=== PATIENT | female | born 1980 | race Caucasian/White ===

== ENCOUNTER → 2016-04-06 | Outpatient (CLI) | payer MEDICAID ==
[~2016-04-06] MED LIST: ZESTRIL 5MG5 MG PO
== END ==
LOC: COL.VAS 12:21
DX: R06.02 Shortness of breath (principal)

== ENCOUNTER → 2017-12-26 | Outpatient (REF) | LOC: ZLAB.WCH 18:36 | DX: Z01.89 Encounter for other specified special examinations (principal) ==

== ENCOUNTER 2018-05-24 09:00 | Outpatient (RCR) | payer MEDICAID | END 2018-06-27 | disposition home or self-care (01) | LOC: MKS.ESL.PT | DX: M76.62 Achilles tendinitis, left leg (principal); M76.61 Achilles tendinitis, right leg ==

== ENCOUNTER 2018-10-06 | Emergency (ER) | payer MEDICAID ==
[~2018-10-06] VITALS: Ht 162.6 cm; Wt 90.9 kg
[2018-10-06 00:08] VITALS: TEMP 98.3
[2018-10-06] MEDS ORDERED: ZESTRIL 10MG10 MG PO (00:15)
[2018-10-06] MEDS ORDERED: REQUIP 0.5MG0.5 MG PO (00:15)
[2018-10-06] MEDS ORDERED: DIAMOX SEQUELS500 M1 PO (00:15)
[2018-10-06] MEDS ORDERED: ZANTAC 150MG T150 MG PO (00:16)
[2018-10-06] MEDS ORDERED: MICROGESTIN 1.51 TAB PO (00:16)
[2018-10-06] MEDS ORDERED: COMBIRESP IH (00:16)
[2018-10-06] MEDS ORDERED: PROZAC 20MG20 MG PO (00:16)
[2018-10-06] MEDS ORDERED: 00186-0372-20 IH (00:17)
[2018-10-06 02:21] VITALS: BP 124/71; PULSE 61
== END 2018-10-06 02:21 | disposition home or self-care (01) ==
LOC: COL.ER
DX: M79.89 Other specified soft tissue disorders (principal); R79.89 Other specified abnormal findings of blood chemistry
CPT/HCPCS: J1650

== ENCOUNTER → 2018-10-07 | Outpatient (CLI) | payer MEDICAID ==
[~2018-10-07] MED LIST changes: +00186-0372-20 IH; +COMBIRESP IH; +DIAMOX SEQUELS500 M1 PO; +MICROGESTIN 1.51 TAB PO; +PROZAC 20MG20 MG PO; +REQUIP 0.5MG0.5 MG PO; +ZANTAC 150MG T150 MG PO; +ZESTRIL 10MG10 MG PO
== END ==
LOC: COL.RAD 12:32
DX: Z13.6 Encounter for screening for cardiovascular disorders (principal); M79.89 Other specified soft tissue disorders

== ENCOUNTER → 2018-10-17 | Outpatient (CLI) | payer MEDICAID | LOC: COL.RAD 10:10 | DX: M75.101 Unspecified rotator cuff tear or rupture of right shoulder, not specified as traumatic (principal) ==

== ENCOUNTER 2019-09-07 11:22 | Emergency (ER) | payer MEDICAID ==
[~2019-09-07] VITALS: Ht 170.2 cm; Wt 95.5 kg
[2019-09-07 11:30] VITALS: TEMP 97.9
[2019-09-07 12:13] LABS: BASO # 0.1 (0.0-0.2); BASO % 0.4 % (0.0-2.0); EOS # 0.2 (0.0-0.7); EOS % 1.8 % (0-4.0); GRAN # 7.5 (1.4-6.5); GRAN % 65.2 % (42.2-75.2); HEMATOCRIT 45.1 % (37.0-47.0); HEMOGLOBIN 14.9 g/dl (12.5-16.0); LYMPH % 25.8 % (20.0-51.0); MEAN CELL VOLUME 84 fl (80.0-100.0); MEAN CORPUSCULAR HEMOGLOBIN 28 pg (27.0-31.0); MEAN CORPUSCULAR HGB CONC 33 g/dl (33.0-37.0); MEAN PLATELET VOLUME 9.9 fl (7.4-10.4); MONO # 0.7 (0.1-0.6); MONO % 6.5 % (1.7-9.3); PLATELET COUNT 299 K/mm3 (130-400); RED BLOOD COUNT 5.36 M/mm3 (4.10-5.30); REDCELL DISTRIBUTION WIDTH-CV 13.8 % (11.5-14.5)
[2019-09-07 12:14] LABS: COLLECTION METHOD CLEAN CATCH
[2019-09-07 12:17] LABS: ALBUMIN 4.2 gm/dL (3.5-5.0); BILIRUBIN,TOTAL 0.5 mg/dL (0.0-1.0); C-REACTIVE PROTEIN 3.4 mg/dL (0.0-0.9); CALCIUM 9.3 mg/dL (8.4-10.2); CREATININE, serum 0.82 (0.52-1.25); POTASSIUM 3.7 mmol/L (3.4-5.0); TOTAL PROTEIN 7.8 gm/dL (6.4-8.2)
[2019-09-07 12:21] LABS: MUCOUS Present /lpf; PH 6 (5-8); URINE APPEARANCE Hazy; URINE BACTERIA Occasional /hpf; URINE BILIRUBIN Negative (NEGATIVE); URINE BLOOD Negative (NEGATIVE); URINE COLOR Yellow; URINE GLUCOSE Negative (NEGATIVE); URINE KETONE Negative (NEGATIVE); URINE LEUKOCYTE ESTERASE 2+ (NEGATIVE); URINE NITRATE Negative (NEGATIVE); URINE PROTEIN(semi-quant) Negative (NEGATIVE); URINE RBC None Seen /hpf
[2019-09-07] MEDS ORDERED: NORCO 325 MG-51 TAB PO (13:25)
[2019-09-07 13:36] VITALS: BP 121/82; PULSE 83
== END 2019-09-07 13:38 | disposition home or self-care (01) ==
LOC: COL.ER 11:22
PROVIDERS: Family Medicine
DX: K52.9 Noninfective gastroenteritis and colitis, unspecified (principal); K21.9 Gastro-esophageal reflux disease without esophagitis; Z79.899 Other long term (current) drug therapy; Z90.49 Acquired absence of other specified parts of digestive tract
CPT/HCPCS: J2270; J2405; J7120; Q9967

== ENCOUNTER 2019-09-13 04:27 | Emergency (ER) | payer MEDICAID ==
[~2019-09-13] VITALS: Ht 165.1 cm; Wt 100.0 kg
[~2019-09-13 04:27] MED LIST changes: +NORCO 325 MG-51 TAB PO
[2019-09-13 04:32] VITALS: TEMP 97.9
[2019-09-13 05:26] LABS: BASO # 0.1 (0.0-0.2); BASO % 0.5 % (0.0-2.0); EOS # 0.2 (0.0-0.7); EOS % 1.6 % (0-4.0); GRAN # 9.5 (1.4-6.5); HEMATOCRIT 46.2 % (37.0-47.0); HEMOGLOBIN 15.1 g/dl (12.5-16.0); LYMPH # 3.7 (1.2-3.4); LYMPH % 25.5 % (20.0-51.0); MEAN CELL VOLUME 83 fl (80.0-100.0); MEAN CORPUSCULAR HEMOGLOBIN 27 pg (27.0-31.0); MEAN CORPUSCULAR HGB CONC 33 g/dl (33.0-37.0); MEAN PLATELET VOLUME 10.2 fl (7.4-10.4); PLATELET COUNT 334 K/mm3 (130-400); RED BLOOD COUNT 5.54 M/mm3 (4.10-5.30); REDCELL DISTRIBUTION WIDTH-CV 13.5 % (11.5-14.5)
[2019-09-13 05:36] LABS: ALBUMIN 3.8 gm/dL (3.5-5.0); BILIRUBIN,TOTAL 0.3 mg/dL (0.0-1.0); CALCIUM 8.3 mg/dL (8.4-10.2); CREATININE, serum 0.64 (0.52-1.25); POTASSIUM 3.1 mmol/L (3.4-5.0); TOTAL PROTEIN 7.2 gm/dL (6.4-8.2)
[2019-09-13 08:13] VITALS: BP 127/86; PULSE 81
== END 2019-09-13 08:15 | disposition home or self-care (01) ==
LOC: COL.ER 04:27
PROVIDERS: Emergency Medicine
DX: E87.6 Hypokalemia (principal); R10.84 Generalized abdominal pain; I10 Essential (primary) hypertension; J45.909 Unspecified asthma, uncomplicated; Z79.51 Long term (current) use of inhaled steroids; Z98.890 Other specified postprocedural states; Z90.49 Acquired absence of other specified parts of digestive tract; Z79.899 Other long term (current) drug therapy
CPT/HCPCS: J1170; J7030

== ENCOUNTER → 2020-04-09 | Outpatient (CLI) | payer MEDICAID | LOC: COL.LAB 12:12 | DX: R14.0 Abdominal distension (gaseous) (principal); R63.5 Abnormal weight gain; R10.9 Unspecified abdominal pain; R19.7 Diarrhea, unspecified ==

== ENCOUNTER → 2020-09-08 | Outpatient (CLI) | payer MEDICAID | LOC: COL.RAD 12:16 | DX: N32.81 Overactive bladder (principal) ==

== ENCOUNTER 2021-01-19 13:00 | Outpatient (RCR) | payer MEDICAID | END 2021-01-20 15:13 | disposition home or self-care (01) | LOC: WSOT 13:00 | DX: M65.4 Radial styloid tenosynovitis [de Quervain] (principal) ==

== ENCOUNTER 2021-07-23 11:47 | Emergency (ER) | payer MEDICAID ==
[~2021-07-23] VITALS: Ht 165.1 cm; Wt 113.6 kg
[2021-07-23 11:56] VITALS: TEMP 97.2
[2021-07-23] MEDS ORDERED: TRELEGY ELLIPT1 EACH IH (12:01)
[2021-07-23] MEDS ORDERED: GEMTESA75 MG PO (12:03)
[2021-07-23] MEDS ORDERED: CYMBALTA 60MG60 MG PO (12:03)
[2021-07-23 12:43] LABS: COLLECTION METHOD CLEAN CATCH
[2021-07-23 12:47] LABS: BASO % 0.4 % (0.0-2.0); EOS # 0.3 K/mm3 (0.0-0.7); EOS % 2.4 % (0.0-4.0); HEMOGLOBIN 14.4 g/dl (12.5-16.0); LYMPH # 2.7 K/mm3 (1.2-3.4); LYMPH % 25.1 % (20.0-51.0); MEAN CELL VOLUME 79 fl (80.0-100.0); MEAN CORPUSCULAR HEMOGLOBIN 26 pg (27-31); MEAN CORPUSCULAR HGB CONC 33 g/dl (33.0-37.0); MEAN PLATELET VOLUME 9.7 fl (7.4-10.4); MONO # 0.7 K/mm3 (0.1-0.6); MONO % 6.8 % (1.7-9.3); PLATELET COUNT 382 K/mm3 (130-400); RED BLOOD COUNT 5.54 M/mm3 (4.10-5.30); REDCELL DISTRIBUTION WIDTH-CV 14.9 % (11.5-14.5)
[2021-07-23 13:03] LABS: MUCOUS Present (NOT PRESENT); PH 5 (5-8); SQUAMOUS EPITHELIAL 20-50 /hpf (0-10); URINE APPEARANCE Cloudy (CLEAR/HAZY); URINE BACTERIA Occasional /hpf (NONE SEEN); URINE BILIRUBIN Negative (NEGATIVE); URINE BLOOD Negative (NEGATIVE); URINE COLOR Yellow (YELLOW); URINE GLUCOSE Negative (NEGATIVE); URINE KETONE Negative (NEGATIVE); URINE LEUKOCYTE ESTERASE 2+ (NEGATIVE); URINE NITRATE Negative (NEGATIVE); URINE PROTEIN(semi-quant) 1+ (NEGATIVE)
[2021-07-23 13:04] LABS: ALBUMIN 3.6 gm/dL (3.5-5.0); BILIRUBIN,TOTAL 0.4 mg/dL (0.2-1.2); CALCIUM 8.8 mg/dL (8.4-10.2); CREATININE, serum 0.82 mg/dL (0.57-1.11); POTASSIUM 3.6 mmol/L (3.5-4.5); TOTAL PROTEIN 7.1 gm/dL (6.2-8.1)
[2021-07-23] MEDS ORDERED: ZOFRAN ODT4 MG PO ×2 (13:57)
[2021-07-23] MEDS ORDERED: CIPRO 500MG TA500 MG PO ×3 (13:57→15:41)
[2021-07-23] MEDS ORDERED: FLAGYL500 MG PO ×3 (13:57→15:41)
[2021-07-23 14:25] VITALS: BP 119/84; PULSE 86
[2021-07-23] MEDS ORDERED: REGLAN 5MG T5 MG/TAB PO (15:41)
== END 2021-07-23 14:25 | disposition home or self-care (01) ==
LOC: COL.ER 11:47
PROVIDERS: Nurse Practitioner Family
DX: K52.9 Noninfective gastroenteritis and colitis, unspecified (principal); N39.0 Urinary tract infection, site not specified; Z90.49 Acquired absence of other specified parts of digestive tract; Z32.02 Encounter for pregnancy test, result negative
CPT/HCPCS: J1885; J2405; J7030; Q9967

== ENCOUNTER 2021-09-16 21:27 | Emergency (ER) | payer MEDICAID ==
[~2021-09-16] VITALS: Ht 165.1 cm; Wt 109.1 kg
[~2021-09-16 21:27] MED LIST changes: +CIPRO 500MG TA500 MG PO; +CYMBALTA 60MG60 MG PO; +FLAGYL500 MG PO; +GEMTESA75 MG PO; +REGLAN 5MG T5 MG/TAB PO; +TRELEGY ELLIPT1 EACH IH; +ZOFRAN ODT4 MG PO
[2021-09-16 21:51] VITALS: TEMP 97.6
[2021-09-17 00:31] LABS: HEMATOCRIT 46.1 % (37.0-47.0); HEMOGLOBIN 14.8 g/dl (12.5-16.0); MEAN CELL VOLUME 81 fl (80.0-100.0); MEAN CORPUSCULAR HEMOGLOBIN 26 pg (27-31); MEAN CORPUSCULAR HGB CONC 32 g/dl (33.0-37.0); MEAN PLATELET VOLUME 9.9 fl (7.4-10.4); PLATELET COUNT 388 K/mm3 (130-400); RED BLOOD COUNT 5.68 M/mm3 (4.10-5.30); REDCELL DISTRIBUTION WIDTH-CV 14.8 % (11.5-14.5)
[2021-09-17 00:44] LABS: ALBUMIN 3.9 gm/dL (3.5-5.0); BAND 3 % (0-10); BILIRUBIN,TOTAL 0.3 mg/dL (0.2-1.2); CALCIUM 9.8 mg/dL (8.4-10.2); CREATININE, serum 0.79 mg/dL (0.57-1.11); HYPOCHROMIA 1+; LYMPHOCYTE 45 % (20.0-51.0); NEUTROPHILS 42 % (42.0-75.2); PLATELET ESTIMATE NORMAL (NORMAL); POTASSIUM 3.8 mmol/L (3.5-4.5); TOTAL PROTEIN 8.2 gm/dL (6.2-8.1)
[2021-09-17] MEDS ORDERED: NORVASC 5MG5 MG/TAB PO (02:59)
[2021-09-17 03:24] VITALS: BP 135/100; PULSE 71
== END 2021-09-17 03:18 | disposition home or self-care (01) ==
LOC: COL.ER 21:27
PROVIDERS: Nurse Practitioner Family
DX: I10 Essential (primary) hypertension (principal); R53.83 Other fatigue; R53.81 Other malaise; Z79.899 Other long term (current) drug therapy; Z28.310 Unvaccinated for COVID-19

== ENCOUNTER → 2021-09-22 | Outpatient (RCR) | payer MEDICAID ==
[~2021-09-22] MED LIST changes: +NORVASC 5MG5 MG/TAB PO
== END | disposition home or self-care (01) ==
LOC: MKS.ESL.PT
DX: M79.7 Fibromyalgia (principal); M79.601 Pain in right arm
CPT/HCPCS: G0283-GP

== ENCOUNTER 2021-10-18 12:45 | Outpatient (RCR) | payer MEDICAID | END 2021-10-23 | disposition home or self-care (01) | LOC: MKS.ESL.PT | DX: M79.601 Pain in right arm (principal) ==

== ENCOUNTER 2021-11-02 12:45 | Outpatient (RCR) | payer MEDICAID | END 2021-11-23 | disposition home or self-care (01) | LOC: MKS.ESL.PT | DX: M79.7 Fibromyalgia (principal); M79.601 Pain in right arm ==

== ENCOUNTER → 2021-11-29 | Outpatient (CLI) | payer MEDICAID | LOC: COL.RAD 07:15 | DX: R11.2 Nausea with vomiting, unspecified (principal); R19.7 Diarrhea, unspecified; R14.0 Abdominal distension (gaseous) | CPT/HCPCS: A9541 ==

== ENCOUNTER → 2021-12-20 | Outpatient (CLI) | payer MEDICAID | LOC: COL.RAD 13:20 | DX: K21.9 Gastro-esophageal reflux disease without esophagitis (principal) ==

== ENCOUNTER 2022-01-11 07:24 | Day surgery (SDC) | payer MEDICAID ==
[2022-01-11] VITALS (10 sets, daily range): BP systolic 83–131; BP diastolic 48–87; PULSE 59–82; TEMP 97.4–98.1
[~2022-01-11] VITALS: Ht 165.1 cm; Wt 114.6 kg
[2022-01-11] MEDS ORDERED: BENTYL 20MG20 MG/TAB PO (08:04)
[2022-01-11] MEDS ORDERED: PRIL40 PO (08:05)
[2022-01-11] MEDS ORDERED: HAILEY FE PO ×2 (08:07→08:10)
[2022-01-11] MEDS ORDERED: COLESTID 1GM1 G PO (08:07)
--- NOTE | 2022-01-11 13:25 | NUR ---
Pt resting does not awakens unless woken up to verbal stimuli. States "I am going to throw up" falls back to sleep. Will give Zofran per orders. Dynamap in place with post-op vitals and call light in reach.
--- NOTE | 2022-01-11 13:55 | NUR ---
OB staff unable to take over care of pt, attempt x2 to notify warehouse guard. Pt returned to PACU and post-op vitals continued, pt tolerated transfer well and remains sleeping. VSS.
--- NOTE | 2022-01-11 15:05 | NUR ---
Pt has been resting comfortably. VSS. Report given to EARLE Khoury and pt taken to room 324 by EARLE Webber at this time.
--- NOTE | 2022-01-11 15:15 | NUR ---
PATIENT ADMITED INTO ROOM 324, TWO HOURS POST OP AFTER UNABLE TO TRANSFER TO ANOTHER UNIT. PATIENT NOW SETTLED ON SURGICAL UNIT AND SLEEPING. NO COMPLAINTS AT THIS TIME. PACU REPORTED LOTS OF C/O PAIN & NAUSEA AND PATIENT WAS GIVEN FENTANYL & PHENERGAN. ABD LAP SITES X6 ARE CD&I WITH BANDAID. ABD IS ROUND AND WITH HYPO BOWL SOUNDS. IV FLUIDS INFUSING INTO LEFT FORARM IV. WATER AT BEDSIDE. HEAD TO TOE ASSESSMENT COMPLETE. CALL LIGHT IN REACH. LIGHTS TURNED DOWN.
--- NOTE | 2022-01-11 20:22 | NUR ---
PT A&OX4 SITTING ON SIDE OF BED. PT RATES PN IN RIGHT RIB AREA A 09/02. X6 ABD LAP SITES CDI. LR INFUSING IN LF. PT REPORTS NOT VOIDING YET. NO NEEDS AT THIS TIME. CALL LIGHT WITHIN REACH.
--- NOTE | 2022-01-11 20:42 | NUR ---
PT A&OX4 RESTING ON THE SIDE OF BED. PT RATES PN A 2/10 IN LT SHOULDER. X6 ABD LAP SITES CDI. SCDS TO BLE. 02 1L NC. LR INFUSING IN RH. NO NEEDS AT THIS TIME. CALL LIGHT WITHIN REACH.
[2022-01-12] VITALS: BP 129/79; PULSE 74; TEMP 99.2
[2022-01-12 04:45] VITALS: BP 121/82; PULSE 77; TEMP 98.2
[2022-01-12 07:15] VITALS: BP 122/71; PULSE 74; TEMP 98.9
--- NOTE | 2022-01-12 09:50 | NUR ---
PT SITTING UP IN BED. ENCOURAGED PT TO GET UP AND MOVE AROUND ROOM. PT LACKING MOTIVATION TO MOVE. REINFORCED TEACHING ON NEED TO MOVE AFTER SURGERY. PT VERBALIZED UNDERSTANDING BUT NOT MOVING WELL. ASSESSMENTS COMPLETE, AM MEDS GIVEN PER ORDERS.
--- NOTE | 2022-01-12 10:29 | NUR ---
Initial visit; Patient thanked Culinary Chef for looking in on her and offering God's blessings. Elizabeth says she is much better today and will be going home.
[2022-01-12 11:19] VITALS: BP 119/72; PULSE 75; TEMP 98.6
--- NOTE | 2022-01-12 12:02 | NUR ---
hot iron worker met with patient to discuss discharge planning. Patient states she lives with her six children ages 12-21 and will return home upon discharge, possibly today. Patient confirms that she has [employer] and that it covers the costs of her medications. Patient's primary care provider is Dr Parker. 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 Patient states she does not have advance directives and does not want information. Discharge Plan: Home
[2022-01-12 15:30] VITALS: BP 119/68; PULSE 78; TEMP 98.3
[2022-01-12] MEDS ORDERED: NORCO 325 MG-51 TAB PO (17:03)
--- NOTE | 2022-01-12 17:57 | NUR ---
DISCHARGE INSTRUCTIONS REVIEWED WITH PT. QUESTIONS SOLICITED AND ANSWERED. PT WAITING FOR RIDE TO COME GET HER.
--- NOTE | 2022-01-12 18:08 | NUR ---
PT LEFT UNIT PER WHEEL CHAIR WITH STAFF AT THIS TIME.
== END 2022-01-12 18:09 | disposition home or self-care (01) ==
LOC: SDCO 07:24 → SURG 15:16 → SDCO 01-12 18:09
DX: K21.9 Gastro-esophageal reflux disease without esophagitis (principal); E66.9 Obesity, unspecified; Z68.41 Body mass index [BMI] 40.0-44.9, adult; Z79.899 Other long term (current) drug therapy; Z28.310 Unvaccinated for COVID-19; Z28.9 Immunization not carried out for unspecified reason
CPT/HCPCS: C1781; J0690; J2405; J2550; J2704; J3010; J7120

== ENCOUNTER 2022-01-17 12:40 | Emergency (ER) | payer MEDICAID ==
[~2022-01-17] VITALS: Ht 162.6 cm; Wt 111.4 kg
[~2022-01-17 12:40] MED LIST changes: +BENTYL 20MG20 MG/TAB PO; +COLESTID 1GM1 G PO; +HAILEY FE PO; +PRIL40 PO
[2022-01-17 12:49] VITALS: TEMP 98.2
[2022-01-17 13:25] LABS: BASO # 0.1 K/mm3 (0.0-0.2); BASO % 0.8 % (0.0-2.0); EOS # 0.2 K/mm3 (0.0-0.7); EOS % 1.9 % (0.0-4.0); GRAN # 4.4 K/mm3 (1.4-6.5); GRAN % 56.4 % (42.2-75.2); HEMATOCRIT 42.9 % (37.0-47.0); LYMPH # 2.5 K/mm3 (1.2-3.4); LYMPH % 31.9 % (20.0-51.0); MEAN CELL VOLUME 80 fl (80.0-100.0); MEAN CORPUSCULAR HEMOGLOBIN 26 pg (27-31); MEAN CORPUSCULAR HGB CONC 33 g/dl (33.0-37.0); MEAN PLATELET VOLUME 10.2 fl (7.4-10.4); MONO # 0.7 K/mm3 (0.1-0.6); MONO % 8.7 % (1.7-9.3); PLATELET COUNT 337 K/mm3 (130-400); RED BLOOD COUNT 5.38 M/mm3 (4.10-5.30); REDCELL DISTRIBUTION WIDTH-CV 14.6 % (11.5-14.5)
[2022-01-17 13:40] LABS: ALBUMIN 3.5 gm/dL (3.5-5.0); BILIRUBIN,TOTAL 0.5 mg/dL (0.2-1.2); C-REACTIVE PROTEIN 2.37 mg/dL (0.00-0.50); CALCIUM 9.5 mg/dL (8.4-10.2); CREATININE, serum 0.76 mg/dL (0.57-1.11); POTASSIUM 4.2 mmol/L (3.5-4.5); TOTAL PROTEIN 7.6 gm/dL (6.2-8.1)
[2022-01-17 14:54] LABS: COLLECTION METHOD CLEAN CATCH
[2022-01-17 15:04] LABS: URINE APPEARANCE Clear (CLEAR/HAZY); URINE COLOR Yellow (YELLOW)
[2022-01-17 15:05] LABS: URINE BLOOD Negative (NEGATIVE); URINE GLUCOSE Negative (NEGATIVE); URINE KETONE Negative (NEGATIVE); URINE NITRATE Negative (NEGATIVE); URINE PROTEIN(semi-quant) Negative (NEGATIVE); URINE UROBILINOGEN 0.2 E.U/dL (0.2-1.0)
[2022-01-17 15:10] LABS: SQUAMOUS EPITHELIAL 0-2 /hpf (0-10); URINE BACTERIA Rare /hpf (NONE SEEN); URINE RBC 0-2 /hpf (0-2)
[2022-01-17] MEDS ORDERED: PERCOCET 325 MG1 TA2 PO (15:16)
[2022-01-17 15:49] VITALS: BP 136/91; PULSE 74
== END 2022-01-17 15:54 | disposition home or self-care (01) ==
LOC: COL.ER 12:40
PROVIDERS: Family Medicine
DX: G89.18 Other acute postprocedural pain (principal); I82.622 Acute embolism and thrombosis of deep veins of left upper extremity; Z28.310 Unvaccinated for COVID-19; Z79.01 Long term (current) use of anticoagulants
CPT/HCPCS: J2270; J2405; J7120; Q9967

== ENCOUNTER 2022-04-25 08:01 | Outpatient (CLI) | payer MEDICAID ==
[~2022-04-25] VITALS: Ht 167.6 cm; Wt 111.9 kg
[~2022-04-25 08:01] MED LIST changes: +CEFTIN500 MG PO; +PERCOCET 325 MG1 TA2 PO; +PROTONIX 40MG T40 MG PO
[2022-04-25] MEDS ORDERED: BENTYL 20MG20 MG/TAB PO (08:36)
[2022-04-25] MEDS ORDERED: CYMBALTA 60MG60 MG PO (08:37)
[2022-04-25] MEDS ORDERED: TRELEGY ELLIPT1 EACH IH (08:39)
[2022-04-25 08:40] VITALS: BP 137/89; PULSE 83; TEMP 98
[2022-04-25 10:25] VITALS: BP 136/92; PULSE 64; PULSE 65
[2022-04-25 10:40] VITALS: BP 130/86; PULSE 65
[2022-04-25 10:47] LABS: GLUCOSE,CSF 56 mg/dL (40-70); TOTAL PROTEIN,CSF 26 mg/dL (15-45)
[2022-04-25 10:55] VITALS: BP 130/77; PULSE 64
[2022-04-25 11:09] LABS: CSF COLOR COLORLESS
[2022-04-25 11:10] VITALS: BP 145/84; PULSE 68
[2022-04-25 11:10] LABS: CSF APPEARANCE CLEAR; CSF POLYMORPHONUCLEAR 0 % (0-6); CSF RBC < 1 /mm3 (0-0)
[2022-04-25 11:11] LABS: CSF MONONUCLEAR 100 % (70-100)
[2022-04-25 11:25] VITALS: BP 129/86; PULSE 72
--- NOTE | 2022-04-25 12:00 | NUR ---
PT TO EU AT 1025 S/P LUMBAR PUNCTURE. PT IN STABLE CONDITION, VSS, DENIES NAUSEA AND STATES HEADACHE HAS IMPROVED POST PROCEDURE. PT LAID FLAT FOR 1 HOUR POST PROCEDURE. PT TOLERATES PO FLUIDS WITHOUT NAUSEA. PT GIVEN D/C INSTRUCTION PACKET, INSTRUCTED TO DRINK FLUIDS AND TO NOTIFY PROVIDER OF ANY ADVERSE REACTIONS. PT D/C'D TO HOME W/ TRANSPORTATION VIA POV AT 1200.
== END 2022-04-25 12:00 | disposition home or self-care (01) ==
LOC: COL.RAD 08:01
PROVIDERS: Nurse Practitioner
DX: G93.2 Benign intracranial hypertension (principal)

== ENCOUNTER 2022-05-04 16:46 | Emergency (ER) | payer MEDICAID ==
[~2022-05-04] VITALS: Ht 170.2 cm; Wt 109.1 kg
[2022-05-04 16:50] VITALS: TEMP 97.9
[2022-05-04 17:22] LABS: COLLECTION METHOD CLEAN CATCH
[2022-05-04 17:28] LABS: BASO # 0.1 K/mm3 (0.0-0.2); BASO % 0.6 % (0.0-2.0); EOS # 0.2 K/mm3 (0.0-0.7); EOS % 1.8 % (0.0-4.0); GRAN # 5.9 K/mm3 (1.4-6.5); GRAN % 54.6 % (42.2-75.2); HEMATOCRIT 44.7 % (37.0-47.0); HEMOGLOBIN 14.4 g/dl (12.5-16.0); LYMPH # 3.9 K/mm3 (1.2-3.4); LYMPH % 35.6 % (20.0-51.0); MEAN CELL VOLUME 79 fl (80.0-100.0); MEAN CORPUSCULAR HEMOGLOBIN 25 pg (27-31); MEAN CORPUSCULAR HGB CONC 32 g/dl (33.0-37.0); MEAN PLATELET VOLUME 10.3 fl (7.4-10.4); MONO # 0.8 K/mm3 (0.1-0.6); MONO % 7.1 % (1.7-9.3); PLATELET COUNT 379 K/mm3 (130-400); RED BLOOD COUNT 5.68 M/mm3 (4.10-5.30); REDCELL DISTRIBUTION WIDTH-CV 15.8 % (11.5-14.5)
[2022-05-04 17:35] LABS: PH 8.5 (5.0-8.5); URINE APPEARANCE Clear (CLEAR/HAZY); URINE BLOOD 2+ (NEGATIVE); URINE COLOR Yellow (YELLOW); URINE GLUCOSE Negative (NEGATIVE); URINE KETONE Negative (NEGATIVE); URINE NITRATE Negative (NEGATIVE); URINE PROTEIN(semi-quant) Negative (NEGATIVE); URINE UROBILINOGEN 0.2 E.U/dL (0.2-1.0)
[2022-05-04 17:42] LABS: URINE BACTERIA None Seen /hpf (NONE SEEN)
[2022-05-04 17:49] LABS: ALBUMIN 3.8 gm/dL (3.5-5.0); BILIRUBIN,TOTAL 0.5 mg/dL (0.2-1.2); CALCIUM 9.7 mg/dL (8.4-10.2); CREATININE, serum 0.85 mg/dL (0.57-1.11); POTASSIUM 3.8 mmol/L (3.5-4.5); TOTAL PROTEIN 7.9 gm/dL (6.2-8.1)
[2022-05-04 18:04] LABS: TSH w REFLEX 0.929 uIU/mL (0.350-4.940)
[2022-05-04 18:31] VITALS: BP 115/61; PULSE 76
== END 2022-05-04 18:37 | disposition home or self-care (01) ==
LOC: COL.ER 16:46
PROVIDERS: Nurse Practitioner Primary Care
DX: R53.81 Other malaise (principal); R53.1 Weakness; Z20.822 Contact with and (suspected) exposure to COVID-19

== ENCOUNTER 2023-02-23 08:12 | Outpatient (RCR) | payer MEDICAID ==
[~2023-02-23 08:12] MED LIST changes: +PAXLOVID CO-PA1 EACH PO
== END 2023-03-25 | disposition home or self-care (01) ==
LOC: WSPT
DX: M25.511 Pain in right shoulder (principal)